=== PATIENT | female | born 1975 | race Caucasian/White ===

== ENCOUNTER 2016-08-06 13:01 | Outpatient (CLI) | payer OTHER ==
[2016-11-01] MEDS ORDERED: FLUOXETINE HCL60 MG PO (13:52)
[2016-11-01] MEDS ORDERED: DEBLITANE0.35 MG (13:53)
[2016-11-01] MEDS ORDERED: OMEPRAZOLE20 M1 PO (13:54)
[2016-11-01] MEDS ORDERED: ALPRAZOLAM0.25 MG PO (13:55)
== END 2016-08-06 23:00 ==
LOC: RT SRH 13:01
DX: J44.9 Chronic obstructive pulmonary disease, unspecified (principal)

== ENCOUNTER 2016-11-06 08:47 | Day surgery (SDC) | payer OTHER ==
[~2016-11-06] VITALS: Ht 170.2 cm; Wt 118.3 kg
[~2016-11-06 08:47] MED LIST: ALPRAZOLAM0.25 MG PO; DEBLITANE0.35 MG; FLUOXETINE HCL60 MG PO; OMEPRAZOLE20 M1 PO
[2016-11-06] MEDS ORDERED: NORCO1 TA1 PO (12:06)
--- NOTE | 2016-11-06 12:07 | Provider's Discharge Care Plan ---
Problem, Goal, Plan Problem List 1. Hidradenitis
--- NOTE | 2016-11-06 12:07 | Provider's Discharge Care Plan ---
Problem, Goal, Plan Problem List 1. Hidradenitis
--- NOTE | 2016-11-06 13:11 | OPERATIVE REPORT ---
DATE OF SURGERY: 11/06/2016 SURGEON: Krystian Jimenez MD PREOPERATIVE DIAGNOSIS: 1. Hidradenitis of bilateral axillae POSTOPERATIVE DIAGNOSIS: 1. Hidradenitis of bilateral axillae PROCEDURE PERFORMED: 1. Excision of hidradenitis bilateral axillae ANESTHESIA: General. INDICATIONS: The patient is a 41-year-old woman with draining indurated sinus tracts in both armpits, which have now become chronic. SURGICAL TECHNIQUE: The patient was taken to the operating room, where a general anesthetic was administered and the patient prepped and draped in the usual sterile fashion. IV antibiotics were administered. The left side was first addressed. A transverse elliptical incision was made in the skin after administration of the 0.5% Marcaine with epinephrine. A 6 x 3 cm ellipse was created in the skin and the underlying subcutaneous tissue was all removed using a combination of sharp and electrocautery dissection. Hemostasis was obtained with pinpoint electrocautery. Once hemostasis was completed, the wound was closed in layers using interrupted deep dermal 3-0 Vicryl and running subcuticular 4-0 Vicryl sutures. Steri-Strips and dressings were applied. The right axilla was addressed in a similar fashion. A slightly larger incision 7 x 4 cm was created and a full-thickness excision performed including a generous section of indurated subcutaneous tissue. There was no pus or active drainage encountered on either side and no direct contamination of the wounds. The right side was also closed in a similar fashion with deep dermal 3-0 Vicryl and running subcuticular 4-0 Vicryl. Steri-Strips and dressings were applied and the patient left in stable condition.
[2016-11-06 14:46] VITALS: BP 125/67
== END 2016-11-06 14:50 | disposition home or self-care (01) ==
LOC: OR SRH 08:47 → SCU SRH 08:49 → OR SRH 10:30
PROVIDERS: Surgery
PROC: 0JBD0ZZ Excision of Right Upper Arm Subcutaneous Tissue and Fascia, Open Approach (ICD-10-PCS; principal; 2016-11-06 10:30)
PROC: 0JBF0ZZ Excision of Left Upper Arm Subcutaneous Tissue and Fascia, Open Approach (ICD-10-PCS; principal; 2016-11-06 10:30)
DX: L73.2 Hidradenitis suppurativa (principal); L72.0 Epidermal cyst; Z72.0 Tobacco use
CPT/HCPCS: 29229; 29240; 50004; 60001; 70002; 80102; 80212; 80852; 84038

== ENCOUNTER 2016-11-08 08:17 | Emergency (ER) | payer OTHER ==
[~2016-11-08 08:17] MED LIST changes: +NORCO1 TA1 PO
--- NOTE | 2016-11-08 12:48 | DIAGNOSTIC IMAGING REPORT ---
PROCEDURE: ABDOMEN/PELVIS WITH CONTRAST CLINICAL INDICATION: ABDOMINAL PAIN TECHNIQUE: 145 ml of Isovue 300 were injected intravenously and axial images were obtained of the abdomen and pelvis with sagittal and coronal reformations. COMPARISON: None. FINDINGS: ABDOMEN: Clear lung bases. Normal sized heart. No hiatal hernia. Inflated gastric band is in place with a phi angle of 44 degrees, normal. Tubing is intact to the subcutaneous port which lies right of midline in the mid abdomen. The liver, decompressed gallbladder, adrenal glands, kidneys, pancreas and spleen are normal. There is an air-fluid level in the stomach. No perigastric inflammation. The abdominal aorta is normal in its course and caliber. No atherosclerosis. There are no suspicious calcifications, retroperitoneal adenopathy or masses. Small fat containing umbilical hernia. There is liquid stool in the proximal and transverse colon. Decompressed descending and sigmoid colon. Liquid stool in the rectum. Small bowel loops are intermittently fluid-filled and decompressed. No transition point or dilated bowel loops. PELVIS: The appendix is normal. The uterus, ovaries, urinary bladder, and pelvic vessels are normal. No adenopathy, free fluid, or pelvic mass. Degenerative disc change L5-S1. IMPRESSION: 1. Liquid stool in the colon and rectum suggestive of gastroenteritis. 2. No evidence of inflammation in the upper abdomen. 3. Laparoscopically placed gastric band in good position without evidence of complication. 4. Decompressed gallbladder suggestive of recent meal. 5. Discussed with Dr. Borges in the emergency room. All CT scans at this facility use dose modulation, iterative reconstruction, and/or weight-based dosing when appropriate to reduce radiation dose to as low as reasonably achievable.
--- NOTE | 2016-11-08 13:14 | ED ORDER SUMMARY ---
..... Patient: GARTH JOHNSON OrderSheet [facility] VisitID: [id number] [place] [address] 41y, F Registration Date/Time: 11/08/2016 ORDER SHEET Weight: 117.9 kg (stated) Allergies: morphine GENERAL ORDERS: CBC w Diff Urgent (09:11/08/2016 Kevin Montenegro) (9:09 Mariela R.N.) CMP Urgent (09:11/08/2016 Kevin Montenegro) (9:09 Mariela R.N.) UA-Culture if indicated Urgent (09:11/08/2016 Kevin Montenegro) (Ack 9:15 TBergley) (10:58 LAbe R.N.) Amylase Urgent (09:11/08/2016 Kevin Montenegro) (9:09 Mariela RTreverN.) Lipase Urgent (09:11/08/2016 Kevin Montenegro) (9:09 Mariela R.N.) Stool for C. Difficile Urgent (10:13 11/08/2016 Kevin Montenegro) (Ack 10:42 TBergley) (14:06 LAbe R.N.) Serum Qualitative Urgent (10:11/08/2016 Kevin Montenegro) (Ack 10:42 TBergley) (11:10 LAbe R.N.) CT Abd/Pel w Cont (No) (17/06) Urgent (11:13 11/08/2016 Kevin Montenegro) (Ack 11:15 LAbe R.N.) (12:11 TBergley) MEDICATION ORDERS: Zofran ODT PO 4 mg (NOW) (09:11/08/2016 Mariela R.N. per protocol) (9:13 Mariela R.N.) Bentyl PO 20 mg (NOW) (14:15 11/08/2016 LAbe R.N. verbal order read back to Kevin Montenegro) (Ack 14:16 LAbe R.N.) (14:16 LAbe R.N.) IV FLUIDS: IV NS : initial bolus none -, then 1000 mL/hr for X1 (NOW) (09:07 11/08/2016 Kevin Montenegro) (9:32 Sumi R.N.) Zofran IV 4 mg (NOW) (09:08 11/08/2016 Kevin Montenegro) (9:33 Sumi R.N.) Demerol IV 25 mg (HIGH ALERT MEDICATION, NOW) (09:08 11/08/2016 Kevin Montenegro) (9:33 LAbakosua R.N.) ORDER SHEET NOTES: [Electronically signed by Emily Mckeon R.N. (14:46 11/08/2016)] [Electronically signed by Dionisio Borges Dr. (21:58 11/08/2016)] [Electronically locked/signed by Emily Mckeon R.N. (14:46 11/08/2016)]
--- NOTE | 2016-11-08 13:14 | ED NURSING NOTES ---
Clinical Report - Nurses [facility] [address] [place] [address] 11/08/2016 8:19 Patient: GARTH JOHNSON TRIAGE Triage time 08:31. Acuity: LEVEL 3. Chief Complaint: ABDOMINAL PAIN, NAUSEA, VOMITING and DIARRHEA. Alert. --08:50 Emily Mckeon R.N. 08:31 11/08/16. BP: 139/61. HR: 92. RR: 20. O2 saturation: 94%. Temp: 98.6 F. Pain level now 10. --08:50 Emily Mckeon R.N. Weight: 117.9 kg stated. Height/Length: 67 inches Per Patient. BMI: 40.7. --08:53 Emily Mckeon R.N. Medications FLUoxetine HCl Oral. --08:40 Emily Mckeon R.N. Omeprazole Oral. --08:40 Emily Mckeon R.N. Xanax Oral. --08:41 Emily Mckeon R.N. Vicodin Oral. --08:41 Emily Mckeon R.N. Norethindrone-Eth Estradiol Oral. --08:44 Emily Mckeon R.N. Medication/allergy information source: the patient. --08:50 Emily Mckeon R.N. Allergies morphine. --14:45 Emily Mckeon R.N. History Arrived by private vehicle. Historian: patient. Accompanied by family. Patient has a primary care physician. Primary physician (carlos segura). This started last night. Onset. (0100). ( N/V/D, abd pain since 0100. Had surgery on bilat axilllary because of infection [place].). Last oral intake by patient was dinner this morning. Treatment COMPUTER APPLICATIONS ENGINEER: None. PAST MEDICAL HX: Immunizations: up-to-date. Last normal menstrual period now. SURGERY HX: ( lap band, shoulder, axillary). No history of previous surgery. SOCIAL HX: Current every day light tobacco smoker- less than 1/2 a pack per day. Alcohol use; consumes beer occasionally. History of drug use: marijuana. (recently). No recent travel. No infectious disease exposure. No known contact with a sick individual. FALL RISK ASSESSMENT: Fall risk assessment completed. No fall risk identified. NUTRITIONAL RISK ASSESSMENT: The nutritional risk assessment revealed no deficiencies. FUNCTIONAL ASSESSMENT: Functional assessment: no impairments noted. LEARNING NEEDS ASSESSMENT: The learning needs assessment revealed no barriers. SKIN INTEGRITY ASSESSMENT: Skin integrity risk assessment completed. No skin integrity risk identified. --08:50 Emily Mckeon R.N. PROBLEMS: Obesity. Anxiety Reaction. --08:47 Emily Mckeon R.N. ADDITIONAL SURGERIES: Axillary surgery. Lap band. Shoulder right. --08:45 Emily Mckeon R.N. Interventions ID band on patient. To treatment room. --08:50 Emily Mckeon R.N. PHYSICAL ASSESSMENT GI / : The patient has had nausea. Emesis noted. Moderate obesity. Abdomen soft. Abdominal tenderness. Bowel sounds within normal limits. SKIN: Skin is warm and dry. --08:52 Emily Mckeon R.N. NURSING PROGRESS NOTES Monitoring of patient in place. Patient gowned. Head of bed elevated. Two patient identifiers checked. Call light placed in reach. Side rails up x 1. Bed placed in lowest position. Brakes of bed on. Patient ready for evaluation- chart flagged. ED physician notified. --08:54 Emily Mckeon R.N. 09:03 11/08/2016 Zofran ODT (Ondansetron) PO Oral Disintegrating Tablets 4 mg given. Allergies verified and confirmed 5 rights. --09:13 Anahi Varner R.N. 09:17 11/08/2016 Site #1 started via IV in the left hand with an 20g angiocath, with aseptic technique and good blood return; one attempt. Blood drawn: rainbow set. Labeled in the presence of the patient and sent to the lab. Saline lock flushed with 5 mL saline. --09:32 Emily Mckeon R.N. 09:26 11/08/2016 Started bag #1 1000 mL IV Fluids IV NS (Saline); at 1000 mL/hr over 1 hour(s) via site #1 via IV pump. Allergies verified and confirmed 5 rights. IV patency established. IV site checked: no pain, redness, or swelling. IV flushed thoroughly pre- and post-medication administration. --09:32 Emily Mckeon R.N. 09:33 11/08/2016 Zofran (Ondansetron HCl) IVP 4 mg given. via site #1. --09:33 Emily Mckeon R.N. 09:33 11/08/2016 Demerol (Meperidine HCl) IVP 25 mg given. via site #1. Allergies verified and confirmed 5 rights. IV patency established. IV site checked: no pain, redness, or swelling. IV flushed thoroughly pre- and post-medication administration. IVP given by RN. --09:33 Emily Mckeon R.N. 09:00 11/08/16. BP: 125/87. HR: 99. O2 saturation: 100%. --11:13 Emily Mckeon R.N. Reassessment after fluids administered and medication administered. She reports no complaints and she is resting quietly. Overall patient status is improved- she states feels better. --11:15 Emily Mckeon R.N. 11:00 11/08/2016 IV Fluids IV NS Discontinued: bag #1 completed. --14:17 Emily Mckeon R.N. 14:16 11/08/2016 Bentyl (Dicyclomine HCl) PO 20 mg given. Allergies verified and confirmed 5 rights. --14:16 Emily Mckeon R.N. Intake & Output PO intake: given 30 ml ice chips, ok by dr garcia. --11:22 Emily Mckeon R.N. DISPOSITION / DISCHARGE 14:18 11/08/2016 Site #1 removed upon discharge. Catheter intact. Pressure dressing applied. --14:18 Emily Mckeon R.N. No learning barriers present. Discharge instructions provided and reviewed with the patient. Reviewed medication(s). Activity restrictions reviewed. Patient verbalized understanding. Written instructions provided in Niuean. The patient was discharged home and accompanied by saw filer. She left the Emergency Department ambulatory and via private vehicle. Traveling Nurse driving. Patient has no belongings. FALL RISK ASSESSMENT: Fall risk assessment completed. No fall risk identified. --14:19 Emily Mckeon R.N. 14:17 11/08/16. BP: 125/93. HR: 94. RR: 18. O2 saturation: 99%. Temp: 99.2 F. Pain level now: 08/03. --14:19 Emily Mckeon R.N. Departure time: 1419. --14:19 Emily Mckeon R.N. Locked/Released at 11/08/2016 14:46 by Emily Mckeon R.N.
--- NOTE | 2016-11-08 13:14 | ED NURSING NOTES ---
Clinical Report - Nurses [facility] [address] [place] [address] 11/08/2016 8:19 Patient: GARTH JOHNSON TRIAGE Triage time 08:31. Acuity: LEVEL 3. Chief Complaint: ABDOMINAL PAIN, NAUSEA, VOMITING and DIARRHEA. Alert. --08:50 Emily Mckeon R.N. 08:31 11/08/16. BP: 139/61. HR: 92. RR: 20. O2 saturation: 94%. Temp: 98.6 F. Pain level now 10. --08:50 Emily Mckeon R.N. Weight: 117.9 kg stated. Height/Length: 67 inches Per Patient. BMI: 40.7. --08:53 Emily Mckeon R.N. Medications FLUoxetine HCl Oral. --08:40 Emily Mckeon R.N. Omeprazole Oral. --08:40 Emily Mckeon R.N. Xanax Oral. --08:41 Emily Mckeon R.N. Vicodin Oral. --08:41 Emily Mckeon R.N. Norethindrone-Eth Estradiol Oral. --08:44 Emily Mckeon R.N. Medication/allergy information source: the patient. --08:50 Emily Mckeon R.N. Allergies morphine. --14:45 Emily Mckeon R.N. History Arrived by private vehicle. Historian: patient. Accompanied by family. Patient has a primary care physician. Primary physician (carlos segura). This started last night. Onset. (0100). ( N/V/D, abd pain since 0100. Had surgery on bilat axilllary because of infection [place].). Last oral intake by patient was dinner this morning. Treatment ADJUNCT PSYCHOLOGY INSTRUCTOR: None. PAST MEDICAL HX: Immunizations: up-to-date. Last normal menstrual period now. SURGERY HX: ( lap band, shoulder, axillary). No history of previous surgery. SOCIAL HX: Current every day light tobacco smoker- less than 1/2 a pack per day. Alcohol use; consumes beer occasionally. History of drug use: marijuana. (recently). No recent travel. No infectious disease exposure. No known contact with a sick individual. FALL RISK ASSESSMENT: Fall risk assessment completed. No fall risk identified. NUTRITIONAL RISK ASSESSMENT: The nutritional risk assessment revealed no deficiencies. FUNCTIONAL ASSESSMENT: Functional assessment: no impairments noted. LEARNING NEEDS ASSESSMENT: The learning needs assessment revealed no barriers. SKIN INTEGRITY ASSESSMENT: Skin integrity risk assessment completed. No skin integrity risk identified. --08:50 Emily Mckeon R.N. PROBLEMS: Obesity. Anxiety Reaction. --08:47 Emily Mckeon R.N. ADDITIONAL SURGERIES: Axillary surgery. Lap band. Shoulder right. --08:45 Emily Mckeon R.N. Interventions ID band on patient. To treatment room. --08:50 Emily Mckeon R.N. PHYSICAL ASSESSMENT GI / : The patient has had nausea. Emesis noted. Moderate obesity. Abdomen soft. Abdominal tenderness. Bowel sounds within normal limits. SKIN: Skin is warm and dry. --08:52 Emily Mckeon R.N. NURSING PROGRESS NOTES Monitoring of patient in place. Patient gowned. Head of bed elevated. Two patient identifiers checked. Call light placed in reach. Side rails up x 1. Bed placed in lowest position. Brakes of bed on. Patient ready for evaluation- chart flagged. ED physician notified. --08:54 Emily Mckeon R.N. 09:03 11/08/2016 Zofran ODT (Ondansetron) PO Oral Disintegrating Tablets 4 mg given. Allergies verified and confirmed 5 rights. --09:13 Anahi Varner R.N. 09:17 11/08/2016 Site #1 started via IV in the left hand with an 20g angiocath, with aseptic technique and good blood return; one attempt. Blood drawn: rainbow set. Labeled in the presence of the patient and sent to the lab. Saline lock flushed with 5 mL saline. --09:32 Emily Mckeon R.N. 09:26 11/08/2016 Started bag #1 1000 mL IV Fluids IV NS (Saline); at 1000 mL/hr over 1 hour(s) via site #1 via IV pump. Allergies verified and confirmed 5 rights. IV patency established. IV site checked: no pain, redness, or swelling. IV flushed thoroughly pre- and post-medication administration. --09:32 Emily Mckeon R.N. 09:33 11/08/2016 Zofran (Ondansetron HCl) IVP 4 mg given. via site #1. --09:33 Emily Mckeon R.N. 09:33 11/08/2016 Demerol (Meperidine HCl) IVP 25 mg given. via site #1. Allergies verified and confirmed 5 rights. IV patency established. IV site checked: no pain, redness, or swelling. IV flushed thoroughly pre- and post-medication administration. IVP given by RN. --09:33 Emily Mckeon R.N. 09:00 11/08/16. BP: 125/87. HR: 99. O2 saturation: 100%. --11:13 Emily Mckeon R.N. Reassessment after fluids administered and medication administered. She reports no complaints and she is resting quietly. Overall patient status is improved- she states feels better. --11:15 Emily Mckeon R.N. 11:00 11/08/2016 IV Fluids IV NS Discontinued: bag #1 completed. --14:17 Emily Mckeon R.N. 14:16 11/08/2016 Bentyl (Dicyclomine HCl) PO 20 mg given. Allergies verified and confirmed 5 rights. --14:16 Emily Mckeon R.N. Intake & Output PO intake: given 30 ml ice chips, ok by dr garcia. --11:22 Emily Mckeon R.N. DISPOSITION / DISCHARGE 14:18 11/08/2016 Site #1 removed upon discharge. Catheter intact. Pressure dressing applied. --14:18 Emily Mckeon R.N. No learning barriers present. Discharge instructions provided and reviewed with the patient. Reviewed medication(s). Activity restrictions reviewed. Patient verbalized understanding. Written instructions provided in Ecuadorean. The patient was discharged home and accompanied by core mounter. She left the Emergency Department ambulatory and via private vehicle. Group Director driving. Patient has no belongings. FALL RISK ASSESSMENT: Fall risk assessment completed. No fall risk identified. --14:19 Emily Mckeon R.N. 14:17 11/08/16. BP: 125/93. HR: 94. RR: 18. O2 saturation: 99%. Temp: 99.2 F. Pain level now: 08/03. --14:19 Emily Mckeon R.N. Departure time: 1419. --14:19 Emily Mckeon R.N. Locked/Released at 11/08/2016 14:46 by Emily Mckeon R.N.
--- NOTE | 2016-11-08 13:14 | ED ORDER SUMMARY ---
..... Patient: GARTH JOHNSON OrderSheet [facility] VisitID: [id number] [place] [address] 41y, F Registration Date/Time: 11/08/2016 ORDER SHEET Weight: 117.9 kg (stated) Allergies: morphine GENERAL ORDERS: CBC w Diff Urgent (09:11/08/2016 Kevin Montenegro) (9:09 Mariela R.N.) CMP Urgent (09:11/08/2016 Kevin Montenegro) (9:09 Mariela R.N.) UA-Culture if indicated Urgent (09:11/08/2016 Kevin Montenegro) (Ack 9:15 TBergley) (10:58 LAbe R.N.) Amylase Urgent (09:11/08/2016 Kevin Montenegro) (9:09 Mariela RTreverN.) Lipase Urgent (09:11/08/2016 Kevin Montenegro) (9:09 Mariela R.N.) Stool for C. Difficile Urgent (10:13 11/08/2016 Kevin Montenegro) (Ack 10:42 TBergley) (14:06 LAbe R.N.) Serum Qualitative Urgent (10:11/08/2016 Kevin Montenegro) (Ack 10:42 TBergley) (11:10 LAbe R.N.) CT Abd/Pel w Cont (No) (17/06) Urgent (11:13 11/08/2016 Kevin Montenegro) (Ack 11:15 LAbe R.N.) (12:11 TBergley) MEDICATION ORDERS: Zofran ODT PO 4 mg (NOW) (09:11/08/2016 Mariela R.N. per protocol) (9:13 Mariela R.N.) Bentyl PO 20 mg (NOW) (14:15 11/08/2016 LAbe R.N. verbal order read back to Kevin Montenegro) (Ack 14:16 LAbe R.N.) (14:16 LAbe R.N.) IV FLUIDS: IV NS : initial bolus none -, then 1000 mL/hr for X1 (NOW) (09:07 11/08/2016 Kevin Montenegro) (9:32 Sumi R.N.) Zofran IV 4 mg (NOW) (09:08 11/08/2016 Kevin Montenegro) (9:33 Sumi R.N.) Demerol IV 25 mg (HIGH ALERT MEDICATION, NOW) (09:08 11/08/2016 Kevin Montenegro) (9:33 LAbakosua R.N.) ORDER SHEET NOTES: [Electronically signed by Emily Mckeon R.N. (14:46 11/08/2016)] [Electronically signed by Dionisio Borges Dr. (21:58 11/08/2016)] [Electronically locked/signed by Emily Mckeon R.N. (14:46 11/08/2016)]
--- NOTE | 2016-11-08 13:14 | ED CLINICAL REPORT ---
Clinical Report - Physicians/Mid Levels [facility] [address] [place] [place] [address] 11/08/2016 8:19 Patient: GARTH JOHNSON Time Seen: 09:03; initial patient contact. Arrived- By private vehicle. Historian- patient. HISTORY OF PRESENT ILLNESS Chief Complaint: ABDOMINAL PAIN. At its maximum, severity described as severe. When seen in the E.D., severity described as severe. Modifying factors- worsened by food. Not relieved by antacids. Not relieved by anything. This started last night and is still present. It is described as "pain" and well localized. Quality not described as migrating. No radiation. It is described as located in the upper abdomen and in the left upper quadrant. The patient has had nausea, vomiting and diarrhea. No loss of appetite. No recent travel. Similar symptoms previously: None. Recent medical care: The patient was seen recently by a health care provider (Recently underwent surgery for axillary abscess, not on Abx). REVIEW OF SYSTEMS No constipation, difficulty with urination, pain with urination, bloody stools or fever. No chills. Last bowel movement: recently. All systems otherwise negative, except as recorded above. PAST HISTORY Obesity. Anxiety Reaction. SURGERIES: Axillary surgery. Lap band. Shoulder right. Medications: Norethindrone-Eth Estradiol Oral. Vicodin Oral. Xanax Oral. Omeprazole Oral. FLUoxetine HCl Oral. SOCIAL HISTORY Current every day smoker. Occasional alcohol use. History of drug use: marijuana. ADDITIONAL NOTES The nursing notes have been reviewed. PHYSICAL EXAM Vital Signs: 11/08/2016 08:31 BP: 139/61. HR: 92. RR: 20. O2 saturation: 94%. Temp: 98.6 F. Have been reviewed. Blood pressure normal. Heart rate normal. Respiratory rate normal. Temperature normal. Oxygen saturation low. Appearance: Alert. Oriented X3. Appears to be in pain. Eyes: Eyes normal inspection. No scleral icterus. ENT: Dry mucous membranes present. CVS: Normal heart rate and rhythm. Heart sounds normal. Respiratory: No respiratory distress. Breath sounds normal. Chest nontender. Abdomen: Soft. Moderate tenderness diffusely with guarding present. No rebound tenderness or Wilson's, obturator or psoas sign present. Bowel sounds normal. Back: Normal inspection. No CVA tenderness. Skin: Skin warm and dry. Normal skin color. No rash. Neuro: Oriented X 3. LABS, X-RAYS, AND EKG Abdominal CT: 1. Liquid stool in the colon and rectum suggestive of gastroenteritis. 2. No evidence of inflammation in the upper abdomen. 3. Laparoscopically placed gastric band in good position without evidence of complication. 4. Decompressed gallbladder suggestive of recent meal. Study type: abdomen and pelvis. Abdominal CT performed with IV contrast. Prior studies were not available for comparison. The study was interpreted by the radiologist and discussed with the radiologist. Interpretation time: 13:09. Laboratory Tests: UA-Culture if indicated: (CULLEN: 11/08/2016 10:29) ( [facility] 11/08/2016 11:05) Final results Test Result Flag Units (Reference) URINE COLOR BIBI URINE APPEARANCE SL CLOUDY URINE GLUCOSE NEGATIVE (NEGATIVE) URINE BILIRUBIN NEGATIVE (NEGATIVE) URINE KETONE NEGATIVE (NEGATIVE) URINE SPECIFIC GRAVITY 1.010 (1.010-1.030) URINE PH 8.5 H (5.0-8.0) URINE PROTEIN 1+ (NEGATIVE) URINE UROBILINOGEN 0.2 EU/dL (0.2-1.0) URINE NITRITE NEGATIVE (NEGATIVE) URINE BLOOD 3+ (NEGATIVE) URINE LEUK ESTERASE NEGATIVE (NEGATIVE) URINE RBC 75-100 rbc/hpf (0-1) URINE WBC 0-1 wbc/hpf (0-1) URINE EPITHELIAL CELLS 3-5 EPI/hpf (0-5) URINE BACTERIA NONE SEEN (NONE SEEN) URINE COMMENT CULT NOT INDICATED 3 MUCUSURINE CULTURES ARE SET-UP BASED ON THE FOLLOWING CRITERIA:POSITIVE NITRITEPOSITIVE LEUKOCYTE ESTERASEGREATER THAN 10 WHITE BLOOD CELLSMODERATE (2+) OR GREATER BACTERIA Serum Qualitative: (CULLEN: 11/08/2016 08:45) ( [facility] 11/08/2016 11:03) Final results Test Result Flag Units (Reference) , SERUM NEGATIVE CBC w Diff: (CULLEN: 11/08/2016 08:45) ( MsgRcvd 11/08/2016 09:24) Final results Test Result Flag Units (Reference) WHITE BLOOD COUNT 16.9 H K/uL (4.5-11.5) RED BLOOD COUNT 5.10 M/uL (4.00-5.20) HEMOGLOBIN 13.1 gm/dL (12.0-16.0) HEMATOCRIT 40.8 % (36.0-46.0) MEAN CELL VOLUME 80 fL (80-100) MEAN CORPUSCULAR HGB 26 pg (26-34) MEAN CORPUSCULAR HGB CONC 32 g/dL (31-37) RED CELL DISTRIBUTION WIDTH 17.0 H % (11.6-14.8) PLATELET COUNT 405 H K/uL (150-400) NEUTROPHIL % 90.8 H % (50-75) LYMPH % 3.5 L % (25-40) MONO % 5.4 % (3-14) EOSINOPHIL % 0.3 % (0-4) BASOPHIL % 0 % (0-2) CMP: (CULLEN: 11/08/2016 08:45) ( MsgRcvd 11/08/2016 09:37) Final results Test Result Flag Units (Reference) GLUCOSE 143 H mg/dL (70-110) BUN 22 H mg/dL (7-18) CREATININE 1.0 mg/dL (0.6-1.3) Estimated GFR >60 mL/min Estimated GFR- >60 mL/min Note: Persistent reduction over 3 months in eGFR<60 mL/min/1.73 m2 defines CKD. Patients with eGFR values>=60 mL/min/1.73 m2 may also have CKD if evidence ofpersistent proteinuria. Additional information may be foundat www.kidney.org. SODIUM 140 mmol/L (136-145) POTASSIUM 4.6 mmol/L (3.5-5.1) CHLORIDE 102 mmol/L (98-107) CARBON DIOXIDE 21 mmol/L (21-32) CALCIUM 9.4 mg/dL (8.5-10.1) TOTAL PROTEIN 8.8 H g/dL (6.4-8.2) ALBUMIN 4.2 g/dL (3.3-5.0) BILIRUBIN, TOTAL 0.5 mg/dL (0.0-1.0) ALKALINE PHOSPHATASE 64 U/L (46-116) AST (SGOT) 21 U/L (15-37) ALT (SGPT) 18 U/L (12-78) LIPASE 132 U/L (73-393) AMYLASE 32 U/L (25-115) . PROGRESS AND PROCEDURES Disposition: Discharged home in good and improved condition. Condition: good. CLINICAL IMPRESSION Acute viral gastroenteritis. Mild leukocytosis. INSTRUCTIONS Do not work today, tomorrow. Drink plenty of fluids. Your Current Medications: CONTINUE TAKING THE FOLLOWING MEDICATIONS: FLUoxetine HCl Oral. Norethindrone-Eth Estradiol Oral. Omeprazole Oral. Vicodin Oral. Xanax Oral. Prescription Medications: Bentyl 20 mg tablets: take 1 orally every 6 hours as needed for abdominal cramps or abdominal discomfort. Dispense thirty (30). No refill. Substitution is permissible. Zofran ODT 4 mg: take 1 orally every 6 hours as needed for nausea and vomiting. Dispense ten (10). One refill. Substitution is permissible. Follow-up: Follow up with your doctor in about four days. Call for an appointment. Screening today revealed the patient's blood pressure to be in the pre-hypertensive range. The patient should follow up with a primary care provider for blood pressure management. (Electronically signed by Dionisio Borges Dr. 11/08/2016 21:58)
--- NOTE | 2016-11-08 21:58 | ED MED RECONCILIATION SUMMARY ---
Patient: GARTH JOHNSON Medication Reconciliation Report [facility] VisitID: [id number] [address] [place] [address] 41y, F Registration Date/Time: 11/08/2016 Weight: 117.9 kg Height/Length: 67 in. BMI: 40.7 ALLERGIES: morphine The patient's Home Medications are listed below: CONTINUE TAKING THE FOLLOWING MEDICATIONS: FLUoxetine HCl Oral Norethindrone-Eth Estradiol Oral Omeprazole Oral Vicodin Oral Xanax Oral The source(s) of the original Home Medication information: patient The following Medications were given to the patient in the Emergency Department: Zofran ODT [PO] PO 4 mg, administered: 11/08/2016 9:03:00 AM IV NS IV Fluids bolus 0, then 1000 mL/hr, administered: 11/08/2016 9:26:00 AM Zofran [IVP] IVP 4 mg, administered: 11/08/2016 9:33:00 AM Demerol [IVP] IVP 25 mg, administered: 11/08/2016 9:33:00 AM Bentyl [PO] PO 20 mg, administered: 11/08/2016 2:16:00 PM The following Medications were prescribed to the patient: Bentyl 20 mg tablets: take 1 orally every 6 hours as needed for abdominal cramps or abdominal discomfort. Dispense thirty (30). No refill. Substitution is permissible. -- Dionisio Borges Dr. Zofrrebeca ODT 4 mg: take 1 orally every 6 hours as needed for nausea and vomiting. Dispense ten (10). One refill. Substitution is permissible. -- Dionisio Borges Dr.
--- NOTE | 2016-11-08 21:58 | ED MAR SUMMARY ---
..... Medication Administration Record [facility] [address] [place] [address] Patient: GARTH JOHNSON Visit ID: [id number] 41y, F Weight: 117.9 kg Height/Length: 67 in BMI: 40.7 ALLERGIES: morphine Given 09:03 11/08/2016 Anahi Varner R.N. Medication Administered: ZOFRAN ODT [PO] (ONDANSETRON), Dose: 4 mg Oral Disintegrating Tablets PO. Medication Ordered: Zofran ODT PO 4 mg (NOW). Start 09:26 11/08/2016 Emily Mckeon R.N., Stop 11:00 11/08/2016 Emily Mckeon R.N. Medication Administered: IV NS (SALINE), Dose: IV Fluids over 1 hour(s), Rate: 1000 mL/hr, Dispensed: 1000 mL bag, Site: #1 left hand. Medication Ordered: IV NS : initial bolus none -, then 1000 mL/hr for X1 (NOW). Given 09:11/08/2016 Emily Mckeon R.N. Medication Administered: ZOFRAN [IVP] (ONDANSETRON HCL), Dose: 4 mg IVP, Site: #1 left hand. Medication Ordered: Zofran IV 4 mg (NOW). Given 09:11/08/2016 Emily Mckeon R.N. Medication Administered: DEMEROL [IVP] (MEPERIDINE HCL), Dose: 25 mg IVP, Site: #1 left hand. Medication Ordered: Demerol IV 25 mg (HIGH ALERT MEDICATION, NOW). Given 14:16 11/08/2016 Emily Mckeon R.N. Medication Administered: BENTYL [PO] (DICYCLOMINE HCL), Dose: 20 mg PO. Medication Ordered: Bentyl PO 20 mg (NOW).
--- NOTE | 2016-11-08 21:58 | ED DISCHARGE INSTRUCTIONS ---
Patient: GARTH JOHNSON General Instructions [facility] VisitID: [id number] [place] [address] 41y, F Registration Date/Time: 11/08/2016 Acute viral gastroenteritis. Mild leukocytosis. INSTRUCTIONS Do not work today, tomorrow. Drink plenty of fluids. Your Current Medications: CONTINUE TAKING THE FOLLOWING MEDICATIONS: FLUoxetine HCl Oral. Norethindrone-Eth Estradiol Oral. Omeprazole Oral. Vicodin Oral. Xanax Oral. Prescription Medications: Bentyl 20 mg tablets: take 1 orally every 6 hours as needed for abdominal cramps or abdominal discomfort. Dispense thirty (30). No refill. Substitution is permissible. Zofran ODT 4 mg: take 1 orally every 6 hours as needed for nausea and vomiting. Dispense ten (10). One refill. Substitution is permissible. Follow-up: Follow up with your doctor in about four days. Call for an appointment. Screening today revealed the patient's blood pressure to be in the pre-hypertensive range. The patient should follow up with a primary care provider for blood pressure management. ADDITIONAL INFORMATION Viral Gastroenteritis (6Yr-Adult) Gastroenteritis is another name for thestomach flu.It is most often caused by a virus that affects the stomach and intestinal tract. Symptoms include stomach cramping and fever, vomiting and/or diarrhea, and can last from 2 to 7 days. The danger from repeated vomiting or diarrhea is dehydration. This is the loss of too much water and minerals from the body. When this occurs, body fluids must be replaced. Antibiotics are not effective for this illness, but simple home treatment will be helpful. Home Care If symptoms are severe, rest at home for the next 24 hours. Avoid tobacco, caffeine, and alcohol use, which can worsen symptoms. Acetaminophen (Tylenol) or ibuprofen (Motrin, Advil) may be usedfor fever or pain unless another medication was prescribed. NOTE: If you have chronic liver or kidney disease or ever had a stomach ulcer or GI bleeding, talk with your doctor before using these medicines. Aspirin should never be used in anyone under 18 years of age who is ill with a fever. It may cause severe liver damage. If medicines for diarrhea or vomiting were prescribed, be sure they are takenonly as directed. If vomiting, drink small amounts of clear fluids (such as water, sports drinks, clear sodas) at frequent intervals to prevent dehydration. Start with 1 to 2 tablespoons every 10 minutes. Once vomiting stops, follow these guidelines: During The First 12 To 24 Hours follow the diet below: Beverages: Sport drinks like Gatorade, soft drinks without caffeine; ravi tammy, mineral water (plain or flavored), decaffeinated tea and coffee. Soups: Clear broth, consomm and bouillon Desserts: Plain gelatin (Jell-O), Popsicles and fruit juice bars. During The Next 24 Hours you may add the following to the above: Hot cereal, plain toast, bread, rolls, crackers Plain noodles, rice, mashed potatoes, chicken noodle or rice soup Unsweetened canned fruit (avoid pineapple), bananas Limit fat intake to less than 15 grams per day by avoiding margarine, butter, oils, mayonnaise, sauces, gravies, fried foods, peanut butter, meat, poultry, and fish. Limit fiber; avoid raw or cooked vegetables, fresh fruits (except bananas), and bran cereals. Limit caffeine and chocolate. Do not use spices or seasonings except salt. During The Next 24 Hours The patient can gradually resume a normal diet as symptoms lessen. Preventing Spread Hand washing with soap and water is the best way to prevent the spread of viruses. Caregivers should wash their hands before andafter touching the sick person. The sick person, as well as everyone in the family,should wash their hands after using the toilet and before meals. Clean the toilet after each use. People with diarrhea should not prepare food for others. If you are preparing your own foods, wash your hands before and after. Follow Up with your doctor as advised. Call your doctor if you are not improving over the next 2 to 3 days. If a stool (diarrhea) sample was taken, you may call in 2 days (or as directed) for the results. Get Prompt Medical Attention if any of the following occur: Increasing abdominal pain Continued vomiting (unable to keep liquids down) Frequent diarrhea (more than 5 times a day) Blood in vomit or stool (black or red color) Dark urine, reduced urine output, or extreme thirst Weakness, dizziness, fainting Drowsiness, confusion, stiff neck, or seizure Fever of 100.4F (38C) oral or higher, not better with fever medication New rash Dicyclomine Hydrochloride Oral tablet What is this medicine? DICYCLOMINE (dye DEEPTIShannan reynaldo samson) is used to treat bowel problems including irritable bowel syndrome. How should I use this medicine? Take this medicine by mouth with a glass of water. Follow the directions on the prescription label. It is best to take this medicine on an empty stomach, 30 minutes to 1 hour before meals. Take your medicine at regular intervals. Do not take your medicine more often than directed. Talk to your ui software engineer regarding the use of this medicine in children. Special care may be needed. While this drug may be prescribed for children as young as 6 months of age for selected conditions, precautions do apply. Patients over 65 years old may have a stronger reaction and need a smaller dose. What side effects may I notice from receiving this medicine? Side effects that you should report to your doctor or health attending ambulatory care as soon as possible: agitation, nervousness, confusion difficulty swallowing dizziness, drowsiness fast or slow heartbeat hallucinations pain or difficulty passing urine Side effects that usually do not require medical attention (report to your doctor or health attending ambulatory care if they continue or are bothersome): constipation headache nausea or vomiting sexual difficulty What may interact with this medicine? amantadine antacids benztropine digoxin disopyramide medicines for allergies, colds and breathing difficulties medicines for alzheimer's disease medicines for anxiety or sleeping problems medicines for depression or psychotic disturbances medicines for diarrhea medicines for pain metoclopramide tegaserod What if I miss a dose? If you miss a dose, take it as soon as you can. If it is almost time for your next dose, take only that dose. Do not take double or extra doses. Where should I keep my medicine? Keep out of the reach of children. Store at room temperature below 30 degrees C (86 degrees F). Protect from light. Throw away any unused medicine after the expiration date. What should I tell my health care provider before I take this medicine? They need to know if you have any of these conditions: difficulty passing urine esophagus problems or heartburn glaucoma heart disease, or previous heart attack myasthenia gravis prostate trouble stomach infection, or obstruction ulcerative colitis an unusual or allergic reaction to dicyclomine, other medicines, foods, dyes, or preservatives or trying to get breast-feeding What should I watch for while using this medicine? You may get drowsy, dizzy, or have blurred vision. Do not drive, use machinery, or do anything that needs mental alertness until you know how this medicine affects you. To reduce the risk of dizzy or fainting spells, do not sit or stand up quickly, especially if you are an older patient. Alcohol can make you more drowsy, avoid alcoholic drinks. Stay out of bright light and wear sunglasses if this medicine makes your eyes more sensitive to light. Avoid extreme heat (hot tubs, saunas). This medicine can cause you to sweat less than normal. Your body temperature could increase to dangerous levels, which may lead to heat stroke. Antacids can stop this medicine from working. If you get an upset stomach and want to take an antacid, make sure there is an interval of at least 1 to 2 hours before or after you take this medicine. Your mouth may get dry. Chewing sugarless gum or sucking hard candy, and drinking plenty of water may help. Contact your doctor if the problem does not go away or is severe. Ondansetron Oral disintegrating tablet What is this medicine? ONDANSETRON (on MARTHA se bishnu) is used to treat nausea and vomiting caused by chemotherapy. It is also used to prevent or treat nausea and vomiting after surgery. How should I use this medicine? These tablets are made to dissolve in the mouth. Do not try to push the tablet through the foil backing. With dry hands, peel away the foil backing and gently remove the tablet. Place the tablet in the mouth and allow it to dissolve, then swallow. While you may take these tablets with water, it is not necessary to do so. Talk to your ui software engineer regarding the use of this medicine in children. Special care may be needed. What side effects may I notice from receiving this medicine? Side effects that you should report to your doctor or health attending ambulatory care as soon as possible: allergic reactions like skin rash, itching or hives, swelling of the face, lips, or tongue breathing problems dizziness fast or irregular heartbeat feeling faint or lightheaded, falls fever and chills swelling of the hands and feet tightness in the chest Side effects that usually do not require medical attention (report to your doctor or health attending ambulatory care if they continue or are bothersome): constipation or diarrhea headache What may interact with this medicine? Do not take this medicine with any of the following medications: -apomorphine -cisapride -dofetilide -dronedarone -pimozide -thioridazine -ziprasidone This medicine may also interact with the following medications: -carbamazepine -phenytoin -rifampicin -tramadol -other medicines that prolong the QT interval (cause an abnormal heart rhythm) What if I miss a dose? If you miss a dose, take it as soon as you can. If it is almost time for your next dose, take only that dose. Do not take double or extra doses. Where should I keep my medicine? Keep out of the reach of children. Store between 2 and 30 degrees C (36 and 86 degrees F). Throw away any unused medicine after the expiration date. What should I tell my health care provider before I take this medicine? They need to know if you have any of these conditions: heart disease history of irregular heartbeat liver disease low levels of magnesium or potassium in the blood an unusual or allergic reaction to ondansetron, granisetron, other medicines, foods, dyes, or preservatives or trying to get breast-feeding What should I watch for while using this medicine? Check with your doctor or health attending ambulatory care as soon as you can if you have any sign of an allergic reaction. You have been given the following additional information: Gastroenteritis, Viral (6Y-Adult) Dicyclomine Hydrochloride Oral tablet Ondansetron Oral disintegrating tablet Do not work today, tomorrow. (Electronically signed by Dionisio Borges Dr. 11/08/2016 21:58)
--- NOTE | 2016-11-08 21:58 | ED MAR SUMMARY ---
..... Medication Administration Record [facility] [address] [place] [address] Patient: GARTH JOHNSON Visit ID: [id number] 41y, F Weight: 117.9 kg Height/Length: 67 in BMI: 40.7 ALLERGIES: morphine Given 09:03 11/08/2016 Anahi Varner R.N. Medication Administered: ZOFRAN ODT [PO] (ONDANSETRON), Dose: 4 mg Oral Disintegrating Tablets PO. Medication Ordered: Zofran ODT PO 4 mg (NOW). Start 09:26 11/08/2016 Emily Mckeon R.N., Stop 11:00 11/08/2016 Emily Mckeon R.N. Medication Administered: IV NS (SALINE), Dose: IV Fluids over 1 hour(s), Rate: 1000 mL/hr, Dispensed: 1000 mL bag, Site: #1 left hand. Medication Ordered: IV NS : initial bolus none -, then 1000 mL/hr for X1 (NOW). Given 09:11/08/2016 Emily Mckeon R.N. Medication Administered: ZOFRAN [IVP] (ONDANSETRON HCL), Dose: 4 mg IVP, Site: #1 left hand. Medication Ordered: Zofran IV 4 mg (NOW). Given 09:11/08/2016 Emily Mckeon R.N. Medication Administered: DEMEROL [IVP] (MEPERIDINE HCL), Dose: 25 mg IVP, Site: #1 left hand. Medication Ordered: Demerol IV 25 mg (HIGH ALERT MEDICATION, NOW). Given 14:16 11/08/2016 Emily Mckeon R.N. Medication Administered: BENTYL [PO] (DICYCLOMINE HCL), Dose: 20 mg PO. Medication Ordered: Bentyl PO 20 mg (NOW).
--- NOTE | 2016-11-08 21:58 | ED MED RECONCILIATION SUMMARY ---
Patient: GARTH JOHNSON Medication Reconciliation Report [facility] VisitID: [id number] [address] [place] [address] 41y, F Registration Date/Time: 11/08/2016 Weight: 117.9 kg Height/Length: 67 in. BMI: 40.7 ALLERGIES: morphine The patient's Home Medications are listed below: CONTINUE TAKING THE FOLLOWING MEDICATIONS: FLUoxetine HCl Oral Norethindrone-Eth Estradiol Oral Omeprazole Oral Vicodin Oral Xanax Oral The source(s) of the original Home Medication information: patient The following Medications were given to the patient in the Emergency Department: Zofran ODT [PO] PO 4 mg, administered: 11/08/2016 9:03:00 AM IV NS IV Fluids bolus 0, then 1000 mL/hr, administered: 11/08/2016 9:26:00 AM Zofran [IVP] IVP 4 mg, administered: 11/08/2016 9:33:00 AM Demerol [IVP] IVP 25 mg, administered: 11/08/2016 9:33:00 AM Bentyl [PO] PO 20 mg, administered: 11/08/2016 2:16:00 PM The following Medications were prescribed to the patient: Bentyl 20 mg tablets: take 1 orally every 6 hours as needed for abdominal cramps or abdominal discomfort. Dispense thirty (30). No refill. Substitution is permissible. -- Dionisio Borges Dr. Zofrrebeca ODT 4 mg: take 1 orally every 6 hours as needed for nausea and vomiting. Dispense ten (10). One refill. Substitution is permissible. -- Dionisio Borges Dr.
== END 2016-11-08 14:19 | disposition home or self-care (01) ==
LOC: ED SRH 08:17
DX: A08.4 Viral intestinal infection, unspecified (principal); D72.819 Decreased white blood cell count, unspecified; F17.210 Nicotine dependence, cigarettes, uncomplicated; Z79.891 Long term (current) use of opiate analgesic; Z79.899 Other long term (current) drug therapy
CPT/HCPCS: 90004; 90074; 90100; 90112; 92235; 92530; 95059; 98428